=== PATIENT | male | born 1965 | race Caucasian/White ===

== ENCOUNTER 2020-12-11 15:28 | Emergency (ER) | payer BC, OTHER ==
[~2020-12-11] VITALS: Ht 167.6 cm; Wt 70.3 kg
[2020-12-11] MEDS ORDERED: SINGULAIR 10 MG10 M1 PO (15:37)
[2020-12-11] MEDS ORDERED: MEVACOR10 MG PO (15:37)
[2020-12-11] MEDS ORDERED: NORCO 10-325 T1 EACH PO (17:36)
[2020-12-11] MEDS ORDERED: IBU600 MG PO (17:36)
[2020-12-11 17:49] VITALS: BP 122/68
== END 2020-12-11 17:45 | disposition home or self-care (01) ==
LOC: ER 15:28
DX: S40.021A Contusion of right upper arm, initial encounter (principal); S20.219A Contusion of unspecified front wall of thorax, initial encounter; S90.01XA Contusion of right ankle, initial encounter; S30.0XXA Contusion of lower back and pelvis, initial encounter; E78.00 Pure hypercholesterolemia, unspecified; Z79.899 Other long term (current) drug therapy; W11.XXXA Fall on and from ladder, initial encounter; Y93.89 Activity, other specified; Y92.89 Other specified places as the place of occurrence of the external cause; Y99.8 Other external cause status